=== PATIENT | female | born 1965 | race African-American/Black ===

== ENCOUNTER 2020-04-09 12:37 | Observation (INO) ==
[2020-04-09 13:25] LABS: Basophils % 0.4 % (0.0-0.8); Hematocrit 32.5 VOL% (35.7-47.0); Hemoglobin 9.9 GM/DL (12.0-16.0); Immature Granulocytes % 0.5 %; Immature Granulocytes Absolute 0.03 #; Lymphocytes # 1.3 10*3/uL (1.4-4.0); Lymphocytes % 23.6 % (21.3-54.2); Mean Corpuscular HGB Conc 30.5 GM/DL (32-36); Mean Corpuscular Volume 93.4 FL (87-102); Mean Platelet Volume 8.5 FL (9.6-12.0); Monocytes % 7.3 % (1.7-12.7); Neutrophils % 68.2 % (38.7-73.9); Platelet Count 274 T/CUMM (130-400); Red Blood Count 3.48 MC/CUMM (3.8-5.5); Red Cell Distribution Width 13.3 % (9.3-17.3); White Blood Count 5.6 T/CUMM (4-12)
[2020-04-09 13:57] LABS: Albumin 3.8 G/DL (3.4-5.0); Bilirubin,Total 0.4 MG/DL (0.2-1.0); Calcium 9.6 MG/DL (8.5-10.1); Osmolality,Calculated 279.4 MOS/KG (273-304); Total Protein 9.1 G/DL (6.4-8.3)
[2020-04-09] MEDS ORDERED: SODIUM CHLORIDE 0.9% 1,000 ML IV STA ×2 (15:21→15:28)
[2020-04-09 16:34] LABS: INR 1.1; PT Patient Result 11.4 SECS (9.8-11.9); Partial Thromboplastin Time 31.7 SECS (23.9-33.8)
[2020-04-09 16:39] LABS: Bilirubin,Urine Negative (Negative); Blood, Urine Negative (Negative); Glucose,Urine (UA) Negative (Negative); Ketones,Urine Negative (Negative); Mucus,Urine Occasional /LPF (Occasional); Nitrite,Urine Negative (Negative); Protein,Urine Negative; Squamous Epithelial Cell,Urine Occasional /HPF (0-10); Urine Appearance CLEAR (Clear); Urine Color Amber (Yellow); Urine Specific Gravity 1.014 (1.001-1.035); Urine Urobilinogen < 2.0 EU/DL (0.2-1.0)
[2020-04-09 16:43] LABS: Barbiturates Screen,Urine Negative (Negative); Benzodiazepines Screen,Urine Negative (Negative); Cannabinoid Screen,Urine Negative (Negative); Opiate Screen,Urine Negative (Negative); Phencyclidine Screen,Urine Negative (Negative)
[2020-04-09] MEDS ORDERED: hydrALAZINE 20 MG/1 ML VIAL IV STA (16:47)
[2020-04-09] MEDS ORDERED: ACETAMINOPHEN 325 MG TABLET PO PRN (18:00)
[2020-04-09] MEDS ORDERED: hydrALAZINE 20 MG/1 ML VIAL IV PRN (18:00)
[2020-04-09] MEDS ORDERED: ONDANSETRON 4 MG/2 ML VIAL IV PRN (18:00)
[2020-04-09] MEDS ORDERED: GLUCAGON 1 MG VIAL IM PRN (18:00)
[2020-04-09] MEDS ORDERED: DEXTROSE 50% 25 GM/50 ML VIAL IV PRN (18:00)
[2020-04-09] MEDS ORDERED: POTASSIUM CHLORIDE 20 MEQ TABLET PO STA (18:12)
[2020-04-09] MEDS: QUEtiapine 100 MG TABLET PO SCH ×2 (21:49→21:50)
[2020-04-09] MEDS: traZODone 50 MG TABLET PO SCH (21:49)
[2020-04-09] MEDS: ENOXAPARIN 40 MG/0.4 ML SYRINGE SUBCUT SCH (21:49)
[2020-04-09] MEDS: sulfaSALAzine 500 MG TABLET PO SCH (21:51)
[2020-04-10 06:00] LABS: Basophils % 0.5 % (0.0-0.8); Hematocrit 29.5 VOL% (35.7-47.0); Hemoglobin 8.9 GM/DL (12.0-16.0); Immature Granulocytes % 0.5 %; Immature Granulocytes Absolute 0.02 #; Lymphocytes # 1.4 10*3/uL (1.4-4.0); Lymphocytes % 35.8 % (21.3-54.2); Mean Corpuscular HGB Conc 30.2 GM/DL (32-36); Mean Corpuscular Volume 94.2 FL (87-102); Mean Platelet Volume 8.6 FL (9.6-12.0); Monocytes % 11.8 % (1.7-12.7); Neutrophils % 51.4 % (38.7-73.9); Platelet Count 255 T/CUMM (130-400); Red Blood Count 3.13 MC/CUMM (3.8-5.5); Red Cell Distribution Width 13.5 % (9.3-17.3)
[2020-04-10 06:39] LABS: Alanine Aminotransferase 22 U/L (13-56); Albumin 3.1 G/DL (3.4-5.0); Alkaline Phosphatase 76 U/L (45-117); Aspartate Amino Transferase 26 U/L (0-37); Bilirubin,Total < 0.39 MG/DL (0.2-1.0); Blood Urea Nitrogen 11 MG/DL (7-18); Calcium 8.8 MG/DL (8.5-10.1); Estimated Glom Filtration Rate 116 ML/MIN; Glucose 119 MG/DL (74-106); Hypochromasia 1+; Microcytosis 1+; Osmolality,Calculated 274.7 MOS/KG (273-304); Ovalocytes Slight; Platelet Estimate Adequate; Total Protein 7.6 G/DL (6.4-8.3)
[2020-04-10] MEDS: hydroCHLOROthiazide 25 MG TABLET PO SCH (08:49)
[2020-04-10] MEDS: PARoxetine 20 MG TABLET PO SCH (08:49)
[2020-04-10] MEDS: sulfaSALAzine 500 MG TABLET PO SCH ×4 (08:49→21:22)
[2020-04-10] MEDS: QUEtiapine 100 MG TABLET PO SCH ×3 (08:50→21:23)
[2020-04-10] MEDS ORDERED: BENZTROPINE 1 MG TABLET PO SCH (21:00)
[2020-04-10] MEDS: traZODone 50 MG TABLET PO SCH (21:22)
[2020-04-10] MEDS: ENOXAPARIN 40 MG/0.4 ML SYRINGE SUBCUT SCH (21:22)
[2020-04-11] MEDS: QUEtiapine 100 MG TABLET PO SCH (09:37)
[2020-04-11] MEDS: sulfaSALAzine 500 MG TABLET PO SCH ×2 (09:38→16:09)
[2020-04-11] MEDS: PARoxetine 20 MG TABLET PO SCH (09:38)
[2020-04-11] MEDS: hydroCHLOROthiazide 25 MG TABLET PO SCH (09:38)
[2020-04-11 12:15] VITALS: BP 138/83
[2020-04-12] MEDS ORDERED: POTASSIUM CHLORIDE 20 MEQ TABLET PO SCH (09:00)
== END 2020-04-11 16:14 | disposition home or self-care (01) ==
LOC: N.EDINP 12:37 → N.ED 12:37 → N.EDINP 19:55 → N.TELES 20:23
PROVIDERS: ADMIT Internal Medicine; ATTEND Internal Medicine